=== PATIENT | female | born 1990 | race African-American/Black ===

== ENCOUNTER 2020-03-06 21:17 | Emergency (ER) | payer OTHER ==
[~2020-03-06] VITALS: Ht 167.6 cm; Wt 63.0 kg
[2020-03-06 21:57] VITALS: BP 121/69
[2020-03-06] MEDS ORDERED: ACETAMINOPHEN 325MG TABLET PO ONE (22:15)
[2020-03-06] MEDS ORDERED: ONDANSETRON 4MG ODT PO ONE (22:45)
== END 2020-03-07 00:10 | disposition home or self-care (01) ==
LOC: ER 21:17
DX: R50.9 Fever, unspecified (principal); R05 Cough; M79.18 Myalgia, other site; J45.909 Unspecified asthma, uncomplicated
CPT/HCPCS: 71045; 81025; 99283; C9803; Q0162; U0003

== ENCOUNTER 2020-03-09 07:48 | Emergency (ER) | payer OTHER ==
[~2020-03-09] VITALS: Ht 165.1 cm; Wt 66.0 kg
[2020-03-09] MEDS ORDERED: ACETAMINOPHEN 325MG TABLET PO STA (08:14)
[2020-03-09] MEDS ORDERED: SODIUM CHLORIDE 0.9% 1,000 ML IV ONE (08:35)
[2020-03-09 08:59] LABS: HEMATOCRIT. 38.6 % (36.0-48.0); HEMOGLOBIN. 12.5 g/dL (12.0-16.0); MEAN CORPUSCULAR HEMOGLOBIN 25.2 pg (28.0-32.0); MEAN CORPUSCULAR VOLUME 77.7 fL (81.0-99.0); MEAN PLATELET VOLUME 9.2 fl (7.4-10.4); PLATELET 193 x1000/uL (130-400); RED BLOOD CELL COUNT 4.96 mill/uL (4.2-5.4); RED CELL DISTRIBUTION WIDTH 15.4 % (11.6-14.6)
[2020-03-09 09:03] LABS: CHLORIDE 105 mEq/L (98-107)
[2020-03-09 09:26] LABS: BG BASE EXCESS -1.1 mmol/L (-2.0-2.0); BG CARBOXYHEMOGLOBIN 0.3 % (0.5-1.5); BG DEOXYHEMOGLOBIN 2.7 % (0.0-5.0); BG HCO3 ACT 22.8 mmol/L (22.0-26.0); BG METHEMOGLOBIN 0.2 % (0.0-1.5); BG OXYGEN SATURATION 97.3 % (92.0-98.5); BG OXYHEMOGLOBIN 96.8 % (94.0-97.0); BG PCO2 35.3 mmHg (35.0-45.0); BG PH 7.428 (7.350-7.450); BG PO2 94.1 mmHg (75.0-100.0); BG SAMPLE SITE RIGHT RADIAL; BG TOTAL HEMOGLOBIN 11.3 g/dL (12.0-18.0); BG VENT MODE ROOM AIR
[2020-03-09 10:04] LABS: PLATELET ESTIMATE NORMAL
[2020-03-09 10:15] VITALS: BP 130/88
[2020-03-09] MEDS ORDERED: LIDOCAINE HCL/PF 1% 2ML VIAL ONE (10:39)
== END 2020-03-09 10:43 | disposition home or self-care (01) ==
LOC: ER 07:48
DX: J45.909 Unspecified asthma, uncomplicated (principal); R00.0 Tachycardia, unspecified
CPT/HCPCS: 36415; 36600; 71045; 80053; 82375; 82805; 85025; 99284; J3490; J7030